=== PATIENT | male | born 1960 | race Caucasian/White ===

== ENCOUNTER 2024-03-14 11:34 | Emergency (ER) | payer MEDICAID, SELFPAY ==
[2024-03-14] VITALS (38 sets, daily range): BP systolic 126–166; BP diastolic 46–79; PULSE 52–67; RESP 5–26; TEMP 36.5; O2SAT 93–100
--- NOTE | 2024-03-14 11:30 | RT.EKG_ITS ---
APPROVED REPORT Exam: Resting ECG Reason for Exam: Chest pain Patient Location: E HR:52 bpm ECG Measurements Heart Rate 52 AXIS KS 218 P 68 QRSd 97 QRS -24 QT 466 T 54 QTc 433 Conclusion Sinus bradycardia 52 normal axis no stemi
[2024-03-14 11:54] LABS: Abs Immature Grans 0.03 10^3/uL (0.0-0.06); Absolute Basophil Count 0.06 10^3/uL (0.0-0.2); Absolute Eosinophil Count 1.28 10^3/uL (0.0-0.7); Absolute Lymphocyte Count 1.14 10^3/uL (1.2-3.4); Absolute Monocyte Count 0.41 10^3/uL (0.1-0.8); Absolute Neutrophil Count 5.74 10^3/uL (1.2-6.7); Basophils % 0.7 %; Eosinophils % 14.8 %; HCT 26.7 % (40.0-50.0); HGB 8.8 g/dL (13.5-17.5); Immature Grans % 0.3 %; Lymphocytes % 13.2 %; MCH 33.7 pg (27.0-33.0); MCV 102 fL (80-95); MPV 9.3 fL (8.0-11.0); Monocytes % 4.7 %; Neutrophils % 66.3 %; Platelet Count 173 10^3/uL (130-400); RBC 2.61 10^6/uL (4.36-5.78); RDW 14.1 % (11.8-14.1); RDW-SD 52.3 fL; WBC 8.66 10^3/uL (4.4-10.8)
--- NOTE | 2024-03-14 12:00 | DI.US_ITS ---
Exam(s) US EXTREMITY VENOUS BI EXAM: US EXTREMITY VENOUS BI CLINICAL HISTORY: Swelling TECHNIQUE: Grayscale, color, and doppler imaging of the deep venous system of both lower extremities was performed. COMPARISON: No exams were available for comparison FINDINGS: There is no evidence of intraluminal thrombus and there is normal compression and augmentation demons trated within the common femoral veins, femoral veins, and popliteal veins of both lower extremities. In the calves the interrogated veins also exhibit normal compression/ augmentation properties. The greater saphenous veins also appear patent as do the saphenofemoral junctions bilaterally.. IMPRESSION: 1. No ultrasound evidence of DVT in either lower extremity. DATA REPOSITORY:
[2024-03-14 12:06] LABS: INR 1.1 (0.9-1.1); Prothrombin Time 11.2 sec (9.1-11.1)
[2024-03-14 12:11] LABS: ALT 19 U/L (16-63); AST 7 U/L (15-37); Albumin 3.9 g/dL (3.4-5.0); Alkaline Phosphatase 144 U/L (46-116); Anion Gap 13.5 mmol/L (3-11); BUN 73 mg/dL (7-18); Bilirubin, Total 0.44 mg/dL (0.2-1.0); CO2 26.5 mmol/L (21.0-32.0); Calcium 8.9 mg/dL (8.5-10.1); Chloride 99 mmol/L (98-107); Estimated GFR 4.27 (mL/min/1.73m2); Glucose 91 mg/dL (74-106); Magnesium 2.3 mg/dL (1.8-2.4); Potassium 5.8 mmol/L (3.5-5.1); Sodium 139 mmol/L (136-145); Total Protein 7.9 g/dL (6.4-8.2)
--- NOTE | 2024-03-14 12:12 | ED.GENADUL_ITS ---
Discharge Plan Disposition Patient Disposition: Transfer-Acute Inpatient Care Specific Acute Inpt Facility: [facility] Condition: Stable Discharge Details Clinical Impression: Elevated troponin I level, End stage chronic kidney disease, Chest pain, Hyperkalemia, CHF (congestive heart failure) Primary Care Provider: Gely Merrill ED Provider: Lydia Lynch Home Meds and New Rx's Prescriptions: No Action acetaminophen 500 mg capsule 1,000 mg PO QHS PRN allopurinol 100 mg tablet 100 mg PO DAILY calcium carbonate [Antacid (calcium carbonate)] 200 mg calcium (500 mg) tablet,chewable 400 mg PO TID atorvastatin 40 mg tablet 40 mg PO DAILY carvedilol 25 mg tablet 12.5 mg PO BID Rx Instructions: must administer with a meal/food cinacalcet 30 mg tablet 30 mg PO DAILY Eliquis 5 mg tablet 5 mg PO BID fluticasone propionate [Allergy Relief (fluticasone)] 50 mcg/actuation spray,suspension 1 spray intranasal BID Rx Instructions: administer into each nostril gabapentin 100 mg capsule 300 mg PO DAILY Patient Comments: TAKE 300 MG BY MOUTH AT BEDTIME. ADDITIONAL 300 MG DIRECTLY AFTER DIALYSIS lidocaine-prilocaine 2.5-2.5 % cream 1 applic topical ONCE PRN Lokelma 10 gram powder in packet 10 g PO DAILY melatonin 5 mg tablet 5 mg PO HS PRN nifedipine 30 mg tablet extended release 30 mg PO DAILY nitroglycerin 0.4 mg tablet, sublingual 0.4 mg sublingual Q5M PRN Rx Instructions: do not exceed 3 doses per episode Karen-Gibran 0.8 mg tablet 1 tab PO DAILY sevelamer HCl 800 mg tablet 1,600 mg PO TID Rx Instructions: must administer with a meal/food sodium bicarbonate 650 mg tablet 1,300 mg PO BID PRN triamcinolone acetonide 0.1 % cream 1 applic topical BID HPI General Mode of arrival: EMS . Date/Time Provider Initiated Documentation: 03/14/24 12:11 . Limitations to Documentation: no limitations . Information obtained by: patient, EMS, RN notes reviewed and old records reviewed . HPI Narrative: 63-year-old male presents to the ER via EMS from [facility] after being seen there this morning and referred here for further evaluation workup for fluid overload and swelling to his lower legs. Patient is a dialysis patient no longer makes urine and has regular dialysis twice a week on Tuesdays and Fridays at [facility]. He reports that he took 2 sublingual nitro at home and a 30 mg nifedipine tablet after awakening with some chest pain feeling the fluid shift presented to the health clinic and was given 2 more nitroglycerin by EMS. He states that he does have a history of cardiac arrest due to fluid overload. Does have a past medical history of gout obstructive sleep apnea, hypertension, aortic valve regurgitation, atrial fibrillation, PTSD, end-stage renal disease, dilated cardiomyopathy. He reports he has taken his daily medications as prescribed has not missed any medications. Related Data Home Medications ?Medication ?Instructions ?Recorded ?Confirmed acetaminophen 500 mg capsule 1,000 mg PO QHS PRN 01/14/24 03/14/24 allopurinol 100 mg tablet 100 mg PO DAILY 01/14/24 03/14/24 apixaban 5 mg tablet (Eliquis) 5 mg PO BID 01/14/24 03/14/24 atorvastatin 40 mg tablet 40 mg PO DAILY 01/14/24 03/14/24 calcium carbonate (Antacid 400 mg PO TID 01/14/24 03/14/24 (calcium carbonate)) carvedilol 25 mg tablet 12.5 mg PO BID 01/14/24 03/14/24 cinacalcet 30 mg tablet 30 mg PO DAILY 01/14/24 03/14/24 fluticasone propionate 50 1 spray intranasal BID 01/14/24 03/14/24 mcg/actuation nasal spray,suspension (Allergy Relief (fluticasone)) gabapentin 100 mg capsule 300 mg PO DAILY 01/14/24 03/14/24 lidocaine-prilocaine 2.5 %-2.5 % 1 applic topical ONCE PRN 01/14/24 03/14/24 topical cream melatonin 5 mg tablet 5 mg PO HS PRN 01/14/24 03/14/24 nifedipine 30 mg tablet,extended 30 mg PO DAILY 01/14/24 03/14/24 release nitroglycerin 0.4 mg sublingual 0.4 mg sublingual Q5M PRN 01/14/24 03/14/24 tablet sevelamer HCl 800 mg tablet 1,600 mg PO TID 01/14/24 03/14/24 sodium bicarbonate 650 mg tablet 1,300 mg PO BID PRN 01/14/24 03/14/24 sodium zirconium cyclosilicate 10 10 g PO DAILY 01/14/24 03/14/24 gram oral powder packet ([facility]) triamcinolone acetonide 0.1 % 1 applic topical BID 01/14/24 03/14/24 topical cream vitamin B complex-vitamin C-folic 1 tab PO DAILY 01/14/24 03/14/24 acid 0.8 mg tablet (Karen-Gibran) Allergies Allergy/AdvReac Type Severity Reaction Status Date / Time latex Allergy Severe dyspnea Unverified 03/14/24 11:38 hydroxyzine Allergy Unknown Unverified 03/14/24 11:38 General Stated Complaint: Chest Pain DAYNA: 3 Review of Systems All systems reviewed & are unremarkable except as noted in HPI and below Constitutional Constitutional: Reports as per HPI Cardiovascular Cardiovascular: Reports chest pain, Reports chest pain at rest, Reports edema, Reports leg edema and Reports dyspnea on exertion Respiratory Respiratory: Reports dyspnea on exertion and Reports wheezing Gastrointestinal Gastrointestinal: Denies nausea and Denies vomiting Allergic/Immunologic Allergic/Immunologic: Reports wheezing Exam Narrative Exam Narrative: Constitutional: Alert and oriented x3. Appears stated age. Normal body habitus. Appears chronically ill. Head: Normocephalic, no trauma. Eyes: Pupils PERRL, no scleral icterus, Red reflex noted, EOM's intact. Eyelids symmetrical without lesions, discharge, or swelling. ENT: Bilateral TM's WNL, External ear normal to inspection, no mastoid TTP, swelling, or erythema, Nasal turbinates WNL, no nasal discharge. Normal dentition, Posterior pharynx WNL, no exudate. Chest: RRR, Normal S1, S2, distal pulses intact. Resp: Scattered expiratory wheezes bilaterally. Abdomen: Soft, non-distended, Normoactive bowel sounds all 4 quads. Musculoskeletal: Unable to assess gait, Moves all 4 extremities without difficulty. 2+ pitting edema noted to bilateral lower extremities no erythema or drainage. Dialysis fistula noted in the right upper extremity. Skin: No suspicious rashes or lesions. Capillary refill less than 2 sec. Neurologic: Cranial nerves II-XII intact. Alert and oriented x 3. Motor: No deficits noted. Sensory: Intact bilaterally all 4 extremities. Hematologic/Lymphatic: No ecchymosis, no lymphadenopathy. Course Vital Signs Vital signs: Vital Signs Respiratory Rate 16 03/14/24 11:38 Temperature 36.5 C 03/14/24 11:42 Temperature Source Temporal Artery Scan 03/14/24 11:42 Pulse 53 L 03/14/24 11:46 Pulse 59 L 03/14/24 11:46 Respiratory Rate 18 03/14/24 11:47 Respiratory Effort Normal, Non-Labored, Short of Breath 03/14/24 11:47 Respiratory Depth Normal 03/14/24 11:47 Respiratory Pattern Normal 03/14/24 11:47 Blood Pressure 147/69 H 03/14/24 11:46 Blood Pressure Mean 95 03/14/24 11:46 Blood Pressure Position Supine 03/14/24 11:42 Pulse Oximetry 94 03/14/24 11:46 Oxygen Delivery Method Room Air 03/14/24 11:42 Oxygen Flow Rate 0 03/14/24 11:42 Pain Level 6 03/14/24 11:47 Comment after ngt 03/14/24 11:42 Lab/Test Results Lab/Test Results: Laboratory Tests Range/Units 03/14/24 11:46 WBC (4.4-10.8) 10^3/uL 8.66 RBC (4.36-5.78) 10^6/uL 2.61 L Hgb (13.5-17.5) g/dL 8.8 L Hct (40.0-50.0) % 26.7 L MCV (80-95) fL 102 H MCH (27.0-33.0) pg 33.7 H MCHC (32.0-36.0) % 33.0 RDW (11.8-14.1) % 14.1 Plt Count (130-400) 10^3/uL 173 MPV (8.0-11.0) fL 9.3 Immature Gran % % 0.3 Neutrophils % % 66.3 Lymphocytes % % 13.2 Monocytes % % 4.7 Eosinophils % % 14.8 Basophils % % 0.7 Nucleated RBC % (0.0-0.3) % 0.0 Absolute Neutrophils (1.2-6.7) 10^3/uL 5.74 Absolute Lymphocytes (1.2-3.4) 10^3/uL 1.14 L Absolute Monocytes (0.1-0.8) 10^3/uL 0.41 Absolute Eosinophils (0.0-0.7) 10^3/uL 1.28 H Absolute Basophils (0.0-0.2) 10^3/uL 0.06 PT (9.1-11.1) sec 11.2 H INR (0.9-1.1) 1.1 APTT (23.6-32.8) sec 30.0 Medical Decision Making 63-year-old male presents to the ER via EMS from the [facility] after being seen there this morning and referred here for further evaluation workup for fluid overload and swelling to his lower legs. Patient is a dialysis patient no longer makes urine and has regular dialysis twice a week on Tuesdays and Fridays at [facility]. 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 He states that he does have a history of cardiac arrest due to fluid overload. Does have a past medical history of gout obstructive sleep apnea, hypertension, aortic valve regurgitation, atrial fibrillation, PTSD, end-stage renal disease, dilated cardiomyopathy. He reports he has taken his daily medications as prescribed has not missed any medications. Upon initial exam and presentation he reports 4 out of 10 chest pressure, EKG was reviewed by myself and Dr. Rice ER attending, no old EKG available for review. He does have 2+ pitting edema bilateral lower extremities no erythema or signs of cellulitis, does have a dialysis fistula noted to his right upper extremity. Does have expiratory wheezes bilaterally scattered throughout on auscultation. DuoNeb ordered, Nitropaste ordered, will consider nitro drip if indicated, patient is slightly hypertensive upon arrival severely 154/77. Will anticipate consulting with [facility]. 1239: [facility] transfer center called for transfer request, will speak with Hospitalist medicine team. 1305: Dr. Anant arango, discussed patient case and details he is questioning recommends cyber security architect consult and transfer to ER if symptomatic, transfer center to contact cardiology. 1329: Spoke with Dr. Askew cardiology, at [facility], he recommends ER to ER transfer, transfer center to call back with accepting, and ED provider report. Will inform plan of care to patient and arrange transport pending accepting. 1354: Spoke with network Physician coordinator, ER MD he agrees to ED to ED transfer. 1406: Spoke with Dr. Robertson at [facility] ED, he agrees to accept patient for admission. Spoke with patient informed of plan of care he verbalized understanding. This text was generated using [employer] dictation system, please disregard any oddities of phrase or misspellings. Patient transferred via EMS to tertiary facility. Patient remained hemodynamically stable at the time of this dictation. Imaging Data Radiologic Study: Imaging: Ultrasound Radiologist's impression: EXAM: US EXTREMITY VENOUS BI CLINICAL HISTORY: Swelling TECHNIQUE: Grayscale, color, and doppler imaging of the deep venous system of both lower extremities was performed. COMPARISON: No exams were available for comparison FINDINGS: There is no evidence of intraluminal thrombus and there is normal compression and augmentation demonstrated within the common femoral veins, femoral veins, and popliteal veins of both lower extremities. In the calves the interrogated veins also exhibit normal compression/ augmentation properties. The greater saphenous veins also appear patent as do the saphenofemoral junctions bilaterally.. IMPRESSION: 1. No ultrasound evidence of DVT in either lower extremity. Lab Data Lab results reviewed: Yes I reviewed the patient's lab results. Labs: Laboratory Tests Range/Units 03/14/24 03/14/24 03/14/24 11:40 11:46 12:11 WBC (4.4-10.8) 10^3/uL 8.66 RBC (4.36-5.78) 10^6/uL 2.61 L Hgb (13.5-17.5) g/dL 8.8 L Hct (40.0-50.0) % 26.7 L MCV (80-95) fL 102 H MCH (27.0-33.0) pg 33.7 H MCHC (32.0-36.0) % 33.0 RDW (11.8-14.1) % 14.1 Plt Count (130-400) 10^3/uL 173 MPV (8.0-11.0) fL 9.3 Immature Gran % % 0.3 Neutrophils % % 66.3 Lymphocytes % % 13.2 Monocytes % % 4.7 Eosinophils % % 14.8 Basophils % % 0.7 Nucleated RBC % (0.0-0.3) % 0.0 Absolute Neutrophils (1.2-6.7) 10^3/uL 5.74 Absolute Lymphocytes (1.2-3.4) 10^3/uL 1.14 L Absolute Monocytes (0.1-0.8) 10^3/uL 0.41 Absolute Eosinophils (0.0-0.7) 10^3/uL 1.28 H Absolute Basophils (0.0-0.2) 10^3/uL 0.06 PT (9.1-11.1) sec 11.2 H INR (0.9-1.1) 1.1 APTT (23.6-32.8) sec 30.0 D-Dimer (<500) ng/mlFEU 1002 H Sodium (136-145) mmol/L 139 Potassium (3.5-5.1) mmol/L 5.8 H Chloride (98-107) mmol/L 99 Carbon Dioxide (21.0-32.0) mmol/L 26.5 Anion Gap (3-11) mmol/L 13.5 H BUN (7-18) mg/dL 73 H Creatinine (0.70-1.30) mg/dL 12.1 H* Est GFR (CKD-EPI 2020) (mL/min/1.73m2) 4.27 Glucose (74-106) mg/dL 91 Calcium (8.5-10.1) mg/dL 8.9 Magnesium (1.8-2.4) mg/dL 2.3 Total Bilirubin (0.2-1.0) mg/dL 0.44 AST (15-37) U/L 7 L ALT (16-63) U/L 19 Alkaline Phosphatase (46-116) U/L 144 H Troponin I (< or =60) ng/L 102 H* NT-Pro-B Natriuret Pep (<300) pg/mL 6993 H Total Protein (6.4-8.2) g/dL 7.9 Albumin (3.4-5.0) g/dL 3.9 Add-On Test Request DONE Range/Units 03/14/24 13:27 WBC (4.4-10.8) 10^3/uL RBC (4.36-5.78) 10^6/uL Hgb (13.5-17.5) g/dL Hct (40.0-50.0) % MCV (80-95) fL MCH (27.0-33.0) pg MCHC (32.0-36.0) % RDW (11.8-14.1) % Plt Count (130-400) 10^3/uL MPV (8.0-11.0) fL Immature Gran % % Neutrophils % % Lymphocytes % % Monocytes % % Eosinophils % % Basophils % % Nucleated RBC % (0.0-0.3) % Absolute Neutrophils (1.2-6.7) 10^3/uL Absolute Lymphocytes (1.2-3.4) 10^3/uL Absolute Monocytes (0.1-0.8) 10^3/uL Absolute Eosinophils (0.0-0.7) 10^3/uL Absolute Basophils (0.0-0.2) 10^3/uL PT (9.1-11.1) sec INR (0.9-1.1) APTT (23.6-32.8) sec D-Dimer (<500) ng/mlFEU Sodium (136-145) mmol/L Potassium (3.5-5.1) mmol/L Chloride (98-107) mmol/L Carbon Dioxide (21.0-32.0) mmol/L Anion Gap (3-11) mmol/L BUN (7-18) mg/dL Creatinine (0.70-1.30) mg/dL Est GFR (CKD-EPI 2020) (mL/min/1.73m2) Glucose (74-106) mg/dL Calcium (8.5-10.1) mg/dL Magnesium (1.8-2.4) mg/dL Total Bilirubin (0.2-1.0) mg/dL AST (15-37) U/L ALT (16-63) U/L Alkaline Phosphatase (46-116) U/L Troponin I (< or =60) ng/L 106 H* NT-Pro-B Natriuret Pep (<300) pg/mL Total Protein (6.4-8.2) g/dL Albumin (3.4-5.0) g/dL Add-On Test Request Quality:SDOH Health Related Social Needs: No Data to Display PFSH All Active Problems (Updated 03/14/24 @ 14:38 by Lydia Lynch NP) CHF (congestive heart failure) (Chronic) Hyperkalemia (Acute) Chest pain (Acute) End stage chronic kidney disease (Acute) Elevated troponin I level (Acute) Medical History Gout LANDEN (obstructive sleep apnea) Visual disturbance Aortic valve regurgitation HTN (hypertension) Hernia of abdominal cavity Afib PTSD (post-traumatic stress disorder) End stage renal disease Onychomycosis due to dermatophyte Hemangioma Dilated cardiomyopathy Panic disorder Aortic stenosis Tobacco user Dependence on renal dialysis CKD (chronic kidney disease) Disorder of skin of scrotum Itchy skin Foot pain ET (eustachian tube disorder) Chronic pain Social History Smoking/Tobacco Use Status: Former Tobacco Use Smoking risk assessment performed?: Yes Alcohol Intake: current Alcohol Intake frequency: holidays/special occasions only Drug use: Never Substance use type: does not use Housing: house
[2024-03-14 12:23] LABS: CREATININE 12.1 mg/dL (0.70-1.30); Troponin I 102 ng/L (< or =60)
[2024-03-14 12:25] LABS: D-Dimer 1002 ng/mlFEU (<500)
[2024-03-14] MEDS: nitroGLYcerin 2% 1 INCH/1 GM PKT TP (13:00)
[2024-03-14] MEDS: CALCIUM GLUCONATE in NaCl 1 GM/50 ML BAG IVPB (13:00)
[2024-03-14 13:08] LABS: Lab Add On Test DONE
--- NOTE | 2024-03-14 13:10 | DI.RAD_ITS ---
Exam(s) XR CHEST 2V PA LATERAL EXAM: XR CHEST 2V PA LATERAL CLINICAL HISTORY: SOB, Chest pain, wheezing. TECHNIQUE: 2D digital imaging was performed. COMPARISON: No exams were available for comparison FINDINGS: 2 views: Heart size is upper normal. The mediastinum is not widened. There is atelectasis and probable infiltrate in the left lung base left lower lobe. Small left pleur al effusion. Also mildly increased markings in the mid right lung field right lower lobe. No pulmon jorge luis edema. IMPRESSION: Bilateral infiltrate findings as above. No pulmonary edema. DATA REPOSITORY: RADIATION DOSE DELIVERED:
[2024-03-14 13:32] LABS: NT-proBNP 6993 pg/mL (<300)
[2024-03-14] MEDS: Insulin REGULAR-Human 100 UNITS/ML UNIT IV (13:39)
[2024-03-14] MEDS: Dextrose 50%-Water 25 GM/50 ML SYR IVP (13:39)
[2024-03-14] MEDS: Albuterol/Ipratropium 3 ML UPD VIAL UPD (13:44)
[2024-03-14] MEDS: Normal Saline 10 ML VIAL IJ (13:44)
[2024-03-14 13:53] LABS: Troponin I 106 ng/L (< or =60)
[2024-03-14 14:35] LABS: COVID-19 PCR Negative (Negative); Influenza A PCR Negative (Negative); Influenza B PCR Negative (Negative); RSV PCR Negative (Negative)
[2024-03-14 14:39] LABS: Source Nasopharynx
== END 2024-03-14 15:03 | disposition short-term general hospital (02) ==
PROVIDERS: Emergency Provider Registered Nurse Emergency; PCP Family Medicine
DX: R79.89 Other specified abnormal findings of blood chemistry (principal); R07.9 Chest pain, unspecified; E87.5 Hyperkalemia; R00.1 Bradycardia, unspecified; I13.2 Hypertensive heart and chronic kidney disease with heart failure and with stage 5 chronic kidney disease, or end stage renal disease; N18.6 End stage renal disease; I50.9 Heart failure, unspecified; I48.91 Unspecified atrial fibrillation; I42.0 Dilated cardiomyopathy; Z79.01 Long term (current) use of anticoagulants; Z87.891 Personal history of nicotine dependence; Z99.2 Dependence on renal dialysis
CPT/HCPCS: 36415; 80053; 82962; 87637; 93005; 94640; 96374; 99285; 71046; 83735; 83880; 84484; 85025; 85379; 85610; 85730; 93010; 93970; J0613; J1815; J7620

== ENCOUNTER 2024-07-25 11:51 | Outpatient (REF) | payer MEDICAID, SELFPAY ==
[2024-07-25 22:33] LABS: HBs Antibody, Quant <3.1 mIU/mL (See Note); Hepatitis B Surface Ab Negative (See Note)
== END 2024-07-25 11:52 | disposition home or self-care (01) ==
LOC: NCHCN 11:51
PROVIDERS: PCP Family Medicine; Visit Provider Family Medicine
DX: Z99.2 Dependence on renal dialysis (principal)
CPT/HCPCS: 86706

== ENCOUNTER 2024-10-27 16:22 | Outpatient (REF) | payer MEDICAID, SELFPAY ==
[2024-10-27 16:32] LABS: Anion Gap 11.3 mmol/L (3-11); BUN 70 mg/dL (7-18); CO2 31.7 mmol/L (21.0-32.0); Calcium 8.9 mg/dL (8.5-10.1); Chloride 101 mmol/L (98-107); Estimated GFR 5.06 (mL/min/1.73m2); Glucose 124 mg/dL (74-106); Potassium 5.2 mmol/L (3.5-5.1); Sodium 144 mmol/L (136-145); Vitamin D 25 Total 36 ng/mL (30-100)
[2024-10-27 16:37] LABS: CREATININE 10.5 mg/dL (0.70-1.30)
== END 2024-10-27 16:23 | disposition home or self-care (01) ==
LOC: NCHCN 16:22
PROVIDERS: PCP Family Medicine; Visit Provider Family Medicine
DX: E55.9 Vitamin D deficiency, unspecified (principal)
CPT/HCPCS: 80048; 82306

== ENCOUNTER 2024-11-24 22:05 | Outpatient (REF) | payer MEDICAID, SELFPAY ==
[2024-11-24 21:34] LABS: HCT 22.7 % (40.0-50.0); HGB 7.3 g/dL (13.5-17.5); MCH 32.4 pg (27.0-33.0); MCHC 32.2 % (32.0-36.0); MCV 101 fL (80-95); MPV 9.6 fL (8.0-11.0); Platelet Count 237 10^3/uL (130-400); RBC 2.25 10^6/uL (4.36-5.78); RDW 15.1 % (11.8-14.1); RDW-SD 55.3 fL; WBC 7.23 10^3/uL (4.4-10.8)
== END 2024-11-24 22:06 | disposition home or self-care (01) ==
LOC: NCHCN 22:05
PROVIDERS: PCP Family Medicine; Visit Provider Family Medicine
DX: D64.9 Anemia, unspecified (principal)
CPT/HCPCS: 85027